=== PATIENT | male | born 1950 | race Caucasian/White ===

== ENCOUNTER 2024-03-09 16:22 | Inpatient (IN) | payer MEDICARE, OTHER, SELFPAY ==
[2024-03-08 17:27] VITALS: BP 141/96
[2024-03-08 17:42] LABS: % Basophils 0.5 % (0-2); % Eosinophils 21.2 % (0-6); % Immature Granulocytes 0.6 % (0-0.5); % Lymphocytes 16.2 % (20.5-51.1); % Monocytes 8.2 % (1.7-9.3); % Neutrophils 53.3 % (42.2-75.2); Absolute Eosinophils 1.7 10^3/uL (0-0.7); Absolute Immature Granulocytes 0.1 10^3/uL (0-0.05); Absolute Lymphocytes 1.3 10^3/uL (1.2-3.4); Absolute Monocytes 0.7 10^3/uL (0.1-0.6); Absolute Neutrophils 4.4 10^3/uL (1.4-6.5); Hematocrit 42.4 % (39.0-52.0); Hemoglobin 14.5 g/dL (13.0-18.0); Mean Corp Hgb Conc. 34.2 g/dL (33.0-37.0); Mean Corpuscular Hgb 33.2 pg (27.0-31.0); Mean Platelet Volume 9.6 fL (7.4-10.4); Nucleated Red Blood Cells % 0 % (-); Platelet Count 313 10^3/uL (130-400); Red Blood Cell Count 4.37 10^6/uL (4.70-6.10); Red Cell Dist. Width 11.9 % (11.5-14.5); White Blood Cell Count 8.2 10^3/uL (4.8-10.8)
[2024-03-08 17:53] LABS: ALT (SGPT) 22 U/L (0-50); AST (SGOT) 22 U/L (17-59); Alkaline Phosphatase 108 U/L (38-126); Blood Urea Nitrogen 21 mg/dl (9-20); Calcium 8.9 mg/dl (8.4-10.2); Carbon Dioxide 30 mmol/L (22-30); Chloride 101 mmol/L (98-107); Glucose 117 mg/dl (70-99); Potassium 4.6 mmol/L (3.5-5.1); Sodium 138 mmol/L (135-145); Total Bilirubin 0.3 mg/dl (0.2-1.3); Total Protein 6.9 g/dl (6.3-8.2); eGFR > 60.00
[2024-03-08 18:05] LABS: Troponin I < 0.012 ng/ml
[2024-03-08 20:54] VITALS: BMI 29.4
[2024-03-08 21:15] VITALS: BP 141/82
[2024-03-08 21:30] VITALS: BP 133/94
--- NOTE | 2024-03-08 21:40 | ED.GENMED ---
History of Present Illness
General
Chief Complaint: Dizziness
Source: patient
Exam Limitations: none
Time Seen by Provider: 03/08/24 18:54
Nursing documentation reviewed up to this point in time: agreed with
History of Present Illness
History of Present Illness:
73-year-old male with no reported chronic medical issues presents to the emergency room for evaluation of diplopia and dizziness. Patient reports symptoms started Saturday while he was working on his computer�he says that he had a few minutes of
diplopia associated with intense dizziness/room spinning. He says that after a few minutes it passed. He says this morning symptoms reoccurred again while he was working on his computer. Again they passed after a few minutes. Tonight while he
was watching television he says he once again had double vision and dizziness and it was more intense and he decided to come to the ER to be evaluated. Currently asymptomatic. He does not have any associated vision loss, speech issues, weakness or
numbness in extremities, headache, palpitations, chest pain or any other symptoms. He has never had the symptoms before; he says he had some transient dizziness from cerumen impaction 5 or 6 years ago but they were dissimilar symptoms without any
diplopia.
Review of Systems
Review of Systems
All Other Systems: ROS reviewed and negative except as documented in HPI and ROS
Constitutional: Denies fever
Respiratory: Denies cough or trouble breathing
Cardiac: Denies chest pain
ABD/GI: Denies abdominal pain, nausea or vomiting
: Denies flank pain
Musculoskeletal: Denies neck pain or back pain
Neurological: Reports dizzy and other (Diplopia); Denies headache, weakness or numbness
Phy Exam
Physical Exam
Physical Exam:
General: Awake, alert, oriented x3; no acute distress
Head: Normocephalic, atraumatic
Eyes: Conjunctiva normal, EOMI, pupils equal round and reactive to light bilaterally
Ears: TMs clear bilaterally�he had some trace cerumen in the right ear that was easily removed
Throat: Airway intact, handling secretions
Neck: Trachea midline, supple without meningismus
Lungs: Clear to auscultation bilaterally, no wheezing, rales, rhonchi
Heart: Regular rate and rhythm, no murmurs, gallops, or rubs
Abd: Soft, non distended, nontender
Neuro: Cranial nerves intact 2 through 12, speech fluid without dysarthria aphasia, no limb ataxia, motor and sensory intact proximally distally in the upper and lower extremities
Skin: no rash
Extremities: No edema in extremities, extremities warm and well-perfused
Scores
NIH Stroke Score
Level of Consciousness: 0 - Alert
LOC Questions: 0-Answers both correctly
LOC Commands: 0-Performs both correctly
Best Horizontal Gaze: 0-Normal
Visual Moser: 0=Normal, no visual loss
Facial Palsy: 0=Normal, symmetrical
Motor - Right Arm: 0=No drift 10 seconds
Motor - Left Arm: 0=No drift 10 seconds
Motor - Right Le-No drift 5 seconds
Motor - Left Le-No drift 5 seconds
Limb Ataxia: 0-Absent
Sensation: 0-Normal
Best Language: 0-No aphasia
Dysarthria: 0-Normal
Extinction and Inattention: 0-No abnormality
Total Score:: 0
Heart Failure Risk
Heart Failure Risk Score: Not Applicable
Heart Score for Chest Pain Patients
STEMI patient?: Not applicable
Withdrawal Assessment of Alcohol
Withdrawal Assessment Completed?: Not applicable
Course
Orders/Labs/Results
Orders:
Orders
03/08/24 17:27
Electrocardiogram (*1) Urgent
Reason for Study: Chest Pain
EKG- Treatment ONCE
03/08/24 17:33
Complete Blood Count/With Diff Urgent
Comprehensive Metabolic Panel Urgent
Troponin I Urgent
03/08/24 18:59
CT Head W/o Iv Contrast Urgent
Comment:
Reason For Exam: dizziness, diplopia
03/08/24 20:46
CT Head & Neck Angio W/wo IV Urgent
Comment:
Reason For Exam: dizziness, diplopia
03/08/24 21:38
Aspirin 325 mg PO NOW STA
03/08/24 21:39
NEUROLOGY CONSULT Urgent
Consulting Provider: Brad Ratliff
Was physician already notified: Yes
03/08/24 22:45
Admit/Transfer Patient As Directed
Co-Sign Provider:
Level of Care: Inpatient admission
Assign to:: Telemetry
Physician / Group: Master Vogt
Diagnosis: CVA/TIA symptoms
Reason for Telemetry: Arrhythmia
Date to Stop Telemetry: 03/11/24
Time to Stop Telemetry: 11:00
Reason for Hospitalization: CVA/TIA symptoms
Expected length of stay greater than two midnights?: Yes
ELOS- Estimated Length of Stay in days: 3
I certify the patient meets the requirements for IP care: Yes
Code Status As Directed
Resuscitation Status: Full Code
PRN Pain Medication Management As Directed
May give lesser potent ordered pain med per pt: Yes
preference::
Protocol:: Medication orders for pain may be administered in a
manner that supports deferring to patient preference
when the pt is:
- Requesting an ordered lesser potent pain medication.
Least to most potent pain medications are defined
as: acetaminophen < NSAID < tramadol < opioids
(morphine, oxycodone, hydromorphone).
- Requesting a lesser dose of the same medication IF
ORDERED.
- Requesting a less intrusive route of administration
if both routes are prescribed by the provider (PO <
IV).
03/11/24 11:00
DC Protocol for Telemetry ONCE
Abnormal Lab Results
03/08/24
17:33
RBC 4.37 L 10^6/uL
(4.70-6.10)
MCV 97.0 H fL
(80.0-94.0)
MCH 33.2 H pg
(27.0-31.0)
Abs Immat Gran (auto) 0.1 H 10^3/uL
(0-0.05)
Absolute Monos (auto) 0.7 H 10^3/uL
(0.1-0.6)
Absolute Eos (auto) 1.7 H 10^3/uL
(0-0.7)
Immature Gran % 0.6 H %
(0-0.5)
Lymphocytes % 16.2 L %
(20.5-51.1)
Eosinophils % 21.2 H %
(0-6)
BUN 21 H mg/dl
(9-20)
Glucose 117 H mg/dl
(70-99)
03/08/24 17:33
03/08/24 17:33
Vital Signs
Initial and Last Documented VS:
Initial Vital Signs
Temp Pulse Resp BP Pulse Ox
36.8 C 106 16 141/96 99
03/08/24 17:27 03/08/24 17:27 03/08/24 17:27 03/08/24 17:27 03/08/24 17:27
Last Documented Vital Signs
Temp Pulse Resp BP Pulse Ox
36.8 C 86 9 112/76 98
03/08/24 17:27 03/08/24 23:30 03/08/24 23:30 03/08/24 23:30 03/08/24 23:30
MDM/Problems Addressed
Differential Diagnosis Includes:
Peripheral vertigo, TIA, eyestrain
MDM/Problems Addressed:
73-year-old male presents to the emergency room for evaluation after multiple episodes of dizziness associated with diplopia. Currently asymptomatic symptoms have resolved. Vitals and exam as above. He had labs sent off including a CBC and a CMP
which were unremarkable. He had an EKG which showed sinus rhythm. CT head negative for any acute pathology. Concern for TIA. Case discussed with neurology. Will dose with an aspirin. They are requesting CTA head and neck. Admit for MR and
monitoring of neurostatus. Case discussed with hospitalist for admission.
*Radiology
Radiology exam reviewed: radiology read reviewed
*Pulse Oximetry
Patient hypoxic: no
*EKG
Interpreted by ED Provider?: Yes
Heart Rate: 99
Rate: normal
Rhythm: sinus
Tunas: left axis deviation
Interval: normal interval
QRS Pattern: left vent hypertrophy
Ischemia: no ischemia
*Critical Care Note
Total Time (30-74mins, 75-104mins- exclusive of procedures): Not Applicable
Data Reviewed
Source: patient
Patient Management
Discussion with other providers: Hospitalist (Discussed with hospitalist) and Senior Counsel [employer] (Discussed with neurologist)
Escalation/DeEscalation of care consider admission/obs:
Admission indicated
ED Attending Note
-
Portions of this chart may have been created with voice recognition software.� Occasional wrong word or��sound alike� substitutions may have occurred due to the inherent limitations of voice recognition software.
Discharge Plan
Departure
Patient Disposition: Admit
Date of Disposition: 03/08/24
Time of Disposition: 21:39
Admit to doctor: Sin
Presentation/result/management discussed w/ accepting MD/DO: Hospitalist
Discharge Problem:
TIA (transient ischemic attack)
Interventions
Interventions:
*Risk Screen - Suicide Last Done: 03/08/24 17:27
*General Assessment Last Done: 03/08/24 19:10
*Neglect/Abuse Screening Last Done: 03/08/24 17:27
*ED COVID-19 Vaccine History Last Done: 03/08/24 19:10
ED- Neurological Assessment Last Done: 03/08/24 19:10
ED Swallowing Screen Last Done: 03/08/24 20:54
--- NOTE | 2024-03-08 21:50 | HPS.HSE ---
Addendum entered and electronically signed by Master Vogt DO 03/08/24 23:57:
Patient seen and examined independently. Agree with findings and plan as set forth by AVELINA Rodgers.
Patient is a 73y M with no significant PMH who presents to ED complaining of dizziness and double vision. Patient describes episodes of double-vision on and again this evening. Both occurred while sitting at his computer for long
hours. Patient states that he also had dizziness / room spinning and nausea. He has had similar vertigo symptoms in the past associated with cerumen impaction - but not with double-vision. He denies any headache, chest pain, dyspnea, etc.
Ass:
Diplopia
Dizziness / Vertigo
Plan:
Observe overnight for further evaluation and treatment.
DAPT for now.
Check MRI in AM.
Neurology eval for further recommendations.
PT / OT evaluations.
Original Note:
Family Physician
-
Family Physician: NOT KNOW UNKNOWN - PT DOES
Chief Complaint
-
dizziness, double vision
History of Present Illness
Patient is a 73-year-old male with no significant past medical history who presented to [facility] ED for evaluation of dizziness and double vision. Patient reports starting last he had a single episodes of double vision that resolved
within a minute. Since then he has had a few episodes of dizziness and stated they came out of no where. Tokays episode of dizziness followed an episode of double vision and came on when he stood up from couch. He stated he grabbed on to wall,
denies falling and states it resolved within a minute or so, but felt since he has had multiple he should come for evaluation. He does report double vision has only happened 2 times, today being the second. The dizzy spells are described as
lightheadedness and some episodes associated with nausea. He reports having dizzy spells a few years ago that steamed from ear wax build up and resolved when ears where cleaned. He did mention that right year had some wax today and cleaned out by
ED. Patient denies any fever, chills, chest pain, cough, shortness of breath, vomiting, constipation, diarrhea or urinary symptoms.
Medical History
Past Medical History
Past Medical History: Reports None
Past Surgical History: Reports Other
Additional Past Surgical History:
left wrist fx repair
lasix
Social History
Tobacco: Former Smoker (quit 15 years ago, 25 pack year history)
Alcohol: Occasional (1-2 drinks per week)
Drug: None
Personal:
Living: With Family
Employment: Retired
Family History
Family History: Not pertinent
Allergies / Home Medications
Allergies reflects when Allergies were last updated in [employer].
Home Medications with original date entered in [employer]
Allergy/Medication List:
Allergies
Allergy/AdvReac Type Severity Reaction Status Date / Time
No Known Allergies Allergy Unverified 03/08/24 17:27
Review of Systems
-
History Source: Patient
Constitutional: Reports No Symptoms
EENT: Reports No Symptoms
Respiratory: Reports No Symptoms
Cardiac: Reports No Symptoms
Abdomen/GI: Reports No Symptoms
: Reports No Symptoms
Musculoskeletal: Reports No Symptoms
Skin: Reports No Symptoms
Neurological: Reports Dizzy and Other (double vision)
Endocrine: Reports No Symptoms
Hematologic/Lymphatic: Reports No Symptoms
Psych: Reports No Symptoms
Physical Exam
Vital Signs
Vital Signs
Temp Pulse Resp BP Pulse Ox
98.2 F 106 16 133/94 98
03/08/24 17:27 03/08/24 17:27 03/08/24 17:27 03/08/24 21:30 03/08/24 21:30
Physical Exam
General: Well Developed, Well Nourished, No Apparent Distress and Comfortable
HEENT: NormoCephalic, Moist mucous membranes, Atraumatic, PERRLA, Delevan Conjunctivae, Nose Appears Normal and Ears Appear Normal
Respiratory: Clear and Non Labored Respirations
Cardiac: S1/S2 and Regular Rhythm; No Murmur, Rub or Gallop
Breast: Deferred by me
GI: Soft, Non Tender, Non Distended and Normal Bowel Sounds; No Organomegaly
Rectal: Deferred by Provider
Genito-urinary: Deferred by me
Musculoskeletal: No Clubbing, No Cyanosis and No Edema
Skin: Warm and IV/Catheter Site; No Rash
Neuro: Awake, Alert, AO x 3 and Nonfocal/grossly intact
Hematologic/Lymphatic: No Lymphadenopathy
Psych: Calm and Intact Judgment/Insight
Laboratory Results
-
03/08/24 17:33
03/08/24 17:33
Laboratory Results
Total Bilirubin 0.3 mg/dl (0.2-1.3) 03/08/24 17:33
AST 22 U/L (17-59) 03/08/24 17:33
ALT 22 U/L (0-50) 03/08/24 17:33
Alkaline Phosphatase 108 U/L (38-126) 03/08/24 17:33
Troponin I < 0.012 ng/ml 03/08/24 17:33
Data Reviewed
-
CT Scan: Report Reviewed by me (Head CT: No acute intracranial abnormality noted.)
Medical Tests (Nuc Med, Echo, EKG etc): Report Reviewed by me (EKG: NORMAL SINUS RHYTHM MINIMAL VOLTAGE CRITERIA FOR LVH, MAY BE NORMAL VARIANT ( R in aVL ))
Lab Data: Labs Reviewed by me
Impression/Plan
-
IMPRESSION/PLAN:
#TIA/CVA symptoms
Head CT: No acute intracranial abnormality noted
EKG: NORMAL SINUS RHYTHM
- Admit to telemetry
- consult neurology
- Head/neck CTA pending
- MRI
- Neurochecks
- [facility]
- Start aspirin and Plavix
Code Status: Full Code
DVT Prophylaxis: SCDs
[2024-03-08 22:00] VITALS: BP 109/71
[2024-03-08 22:30] VITALS: BP 113/69
[2024-03-08] MEDS: ASPIRIN 325 MG PO (23:25)
[2024-03-08 23:30] VITALS: BP 112/76
[2024-03-09] VITALS (9 sets, daily range): BP systolic 109–149; BP diastolic 61–85; PULSE 81–98; BMI 29.1
--- NOTE | 2024-03-09 02:17 | PTCARENOTE ---
Receive pt from ER. Pt alert oriental X3, calm, in no distress. Pt assist X1 to his bed, steady gait. Pt oriented to the room, call cardenas within reach. Pt denies double vision, dizziness, or any other complaint. VSS (T=98.8, HR=87, RR=18, UT=162/71,
SpO2=98% on RA). NIH=0. Pt passed the swallowing test. Pt on NSR on telemonitor. Will continue to monitor the pt.
[2024-03-09] MEDS: PLAVIX 75 MG PO (08:26)
[2024-03-09] MEDS: LOW STRENGTH ASPIRIN 81 MG PO (08:26)
[2024-03-09] MEDS: FLUSH (NSS) 1 FLUSH IV (08:30)
--- NOTE | 2024-03-09 09:33 | W.PN.HOSP.TC ---
Today's Communication/Plan
-
Discharge today
Assessment / Plan
Assessment / Plan
Physical Exam
General: Not in acute distress
HEENT: Normocephalic
Respiratory: Clear to Auscultation Bilaterally
Cardiac: S1/S2 and Regular Rhythm
GI: Soft, Non Tender, Non Distended and Normal Bowel Sounds
Musculoskeletal: No Cyanosis and No Edema
Skin: Warm. Dry.
Neuro: Awake, Alert, AO x 3 and Nonfocal/grossly intact
Psych: Calm and Intact Judgment/Insight
Assessment/Plan
73 y/o male with no significant past medical history who presented complaining of dizziness and double vision. Patient described episodes of double-vision on and again on Saturday evening. Both occurred while sitting at his computer for
long hours. Patient stated that he also had dizziness / room spinning and nausea. He has had similar vertigo symptoms in the past associated with cerumen impaction - but not with double-vision. He denied any headache, chest pain, dyspnea, etc.
#TIA/CVA symptoms
#Acute infarcts in the bilateral MILK DRIVER territory, occipital, centrum semiovale
#Diplopia, Dizziness, Vertigo
Head CT: No acute intracranial abnormality noted
EKG: NORMAL SINUS RHYTHM
- consult neurology
- Head/neck CTA unremarkable: mild calcified plaque, no hemodynamically significant stenosis
- MRI Brain
- Neurochecks
- [facility]
- Continue Aspirin 81 mg daily
- Continue Plavix 75 mg x 21 days
- Lipid panel noted. Start Lipitor 40 mg daily.
- Outpatient cardiology eval for zio patch
Code Status: Full Code
DVT Prophylaxis: SCDs
More than 30 minutes spent in discharge including
Final examination of the patient
Summarizing hospital stay
Instructions for continuing care to all relevant caregivers
Preparation of discharge records, prescriptions, and referral forms
Total time spent (in minutes): 39
Anticipated Discharge: Today
Subjective/Interval History
-
Date of Service: March 09, 2024
Patient was seen and examined. He reported that his initial neurological symptoms have resolved, and he wants to go home today.
Objective Data
-
Labs:
Laboratory Results
03/09/24
06:00
WBC Pending
Hgb Pending
Hct Pending
Plt Count Pending
PT Pending
INR Pending
APTT Pending
Sodium Pending
Potassium Pending
Chloride Pending
Carbon Dioxide Pending
BUN Pending
Creatinine Pending
Glucose Pending
Calcium Pending
Total Bilirubin Pending
AST Pending
ALT Pending
Alkaline Phosphatase Pending
Vital Signs:
Vital Signs
Temp Pulse Resp BP Pulse Ox
98.1 F 81 20 120/74 96
03/09/24 07:45 03/09/24 07:45 03/09/24 07:45 03/09/24 07:45 03/09/24 07:45
I&O
03/08/24 03/09/24 03/10/24
06:59 06:59 06:59
Intake Total 480 / 480
Balance 480 / 480
[2024-03-09 10:52] LABS: Urine Albumin Negative (Neg - Trace); Urine Bilirubin Negative (Negative); Urine Character Clear (Clear); Urine Color Yellow; Urine Glucose Negative (Negative); Urine Ketone Negative (Negative); Urine Leukocyte Negative (Negative); Urine Nitrite Negative (Negative); Urine Occult Blood Negative (Negative); Urine Urobilinogen Negative (Neg - 1+)
[2024-03-09 11:08] LABS: Hematocrit 40.8 % (39.0-52.0); Hemoglobin 13.8 g/dL (13.0-18.0); Mean Corp Hgb Conc. 33.8 g/dL (33.0-37.0); Mean Corpuscular Hgb 32.8 pg (27.0-31.0); Mean Corpuscular Volume 96.9 fL (80.0-94.0); Mean Platelet Volume 9.5 fL (7.4-10.4); Platelet Count 286 10^3/uL (130-400); Red Blood Cell Count 4.21 10^6/uL (4.70-6.10)
[2024-03-09 11:23] LABS: Erythrocyte Sed Rate 38 mm/hour (0-20)
[2024-03-09 11:25] LABS: INR 1.09; PT 14.6 Sec (11.4-14.6)
[2024-03-09 11:27] LABS: APTT 38.9 Sec (23.4-35.0)
--- NOTE | 2024-03-09 11:54 | PTOTSP ---
Patient mobilizing at functional baseline and does not demonstrate need for further skilled therapy at this time and will be discharge.
If needs change, please re-consult.
[2024-03-09 12:07] LABS: ALT (SGPT) 20 U/L (0-50); AST (SGOT) 20 U/L (17-59); Albumin 3.6 g/dl (3.5-5.0); Alkaline Phosphatase 96 U/L (38-126); Blood Urea Nitrogen 17 mg/dl (9-20); Calcium 8.8 mg/dl (8.4-10.2); Carbon Dioxide 29 mmol/L (22-30); Chloride 103 mmol/L (98-107); Estimated Creatinine Clearance 63 ml/min; Glucose 90 mg/dl (70-99); Potassium 4.5 mmol/L (3.5-5.1); Sodium 137 mmol/L (135-145); Total Bilirubin 0.5 mg/dl (0.2-1.3); Total Cholesterol 174 mg/dl (50-199); Total Protein 6.3 g/dl (6.3-8.2); Triglyceride 73 mg/dl (10-149); Very Low Density Lipoprotein 14 mg/dl (0-30); eGFR > 60.00
[2024-03-09 12:29] LABS: Glycohemoglobin (HgbA1c) 5.4 % (4.0-5.6)
[2024-03-09 13:05] LABS: HDL Cholesterol 52 mg/dl; LDL Cholesterol, Calculated 108 mg/dl
--- NOTE | 2024-03-09 13:59 | CON.NEURO ---
Neuro Assessment/Plan
Assessment
symptoms due to stroke, likely emboli from local vessel (vertebrobasilar)
brain MRI imgs rev'd, discussed with radiologist, 3 punctate acute infarcts in the b/l ROUGH RICE TENDER territory, occipital, centrum semiovale
CTA showing b/l carotids mild calcified plaque, no hemodynamically significant stenosis
HDL 52, LDL 108, HA1c 5.4
Plan
continue ASA 81
continue plavix 75 x21 days
Add Lipitor 40
ok to d/c home, coming up on 24 hrs of heart monitoring
patient with relatively few risk factors, discussed with him at our option, outpatient cardiology eval for zio patch, if afib were found he could be treated with anticoagulants
Consultation
Order
Date of Consultation: 03/09/24
Requesting Provider:
Reason for Consult:
Subjective/Objective
Subjective Data
Date of Service: March 09, 2024
patient presents yesterday with ~2 hours of transient dizziness, binocular double vision while using a computer. symptoms now resolved
denies vision loss, facial droop, focal weakness, numbness, speech changes
Objective Data
Vital Signs
Temp Pulse Resp BP Pulse Ox
36.3 C 89 20 132/80 97
03/09/24 11:43 03/09/24 11:43 03/09/24 11:43 03/09/24 11:43 03/09/24 11:43
Lab Results
03/09/24 10:59
03/09/24 10:59
PT 14.6 Sec (11.4-14.6) 03/09/24 10:59
INR 1.09 03/09/24 10:59
APTT 38.9 Sec (23.4-35.0) H 03/09/24 10:59
Sodium 137 mmol/L (135-145) 03/09/24 10:59
Potassium 4.5 mmol/L (3.5-5.1) 03/09/24 10:59
BUN 17 mg/dl (9-20) 03/09/24 10:59
Glucose 90 mg/dl (70-99) 03/09/24 10:59
Calcium 8.8 mg/dl (8.4-10.2) 03/09/24 10:59
LDL Cholesterol, Calc 108 mg/dl 03/09/24 10:59
Patient Allergies
No Known Allergies Allergy (Unverified 03/08/24 17:27)
Physical Exam
-
AAO x3, speech clear, language intact
VFF, EOMI, face symmetric
full strength b/l UE/LE, no pronator drift
sensation intact touch/pin
Medications
-
Active Medications
Generic Name Dose Route Start Last Admin
Trade Name Freq PRN Reason Stop Dose Admin
Aspirin 81 mg 03/09/24 08:00 03/09/24 08:26
Aspirin 81 Mg Chewable Tablet PO 04/06/24 07:59 81 mg
DAILY LIDIA Administration
Atorvastatin Calcium 40 mg 03/09/24 18:00
Atorvastatin (Lipitor) 40 Mg Tablet PO 04/06/24 17:59
QPM LIDIA
Clopidogrel Bisulfate 75 mg 03/09/24 08:00 03/09/24 08:26
Clopidogrel 75 Mg Tablet PO 04/06/24 07:59 75 mg
DAILY LIDIA Administration
Sodium Chloride 0 flush 03/09/24 09:00 03/09/24 08:30
Sodium Chloride 0.9% (Flush) Syringe IV 04/06/24 08:59 1 flush
PER PROTOCOL LIDIA Administration
Home Medications
�Medication �Instructions �Recorded
No Meds [No Current Medications] 03/09/24
--- NOTE | 2024-03-09 15:41 | CM ---
Patient seen bedside.
IA completed.
Patient lives with spouse and 3 sons in a 2 story home with 1 step to enter.
patient drives and works from home.
Patient independent prior to admission.
patient does ot use assistive devices.
Patient denies home care needs at this time.
PCP: none, resources provided, however he will probably go to his spouses PCP.
Pharmacy: [facility]
Plan Home no needs.
--- NOTE | 2024-03-09 16:50 | W.DCSUMMARY ---
Discharge Summary
Discharge Data
Date of Admission: 03/08/24
Date of Discharge: 03/09/24
Total time spent discharging patient (in min): 39
-
Pending Results: No
Hospital Course
73 y/o male who presented reporting dizziness and double vision. Patient was started on dual antiplatelet therapy, CT Head showed no acute changes, CTA Head and Neck showed as per radiologist, 'No evidence for hemodynamically significant stenosis of
the carotid bulbs or internal carotid arteries bilaterally......Dominant right vertebral artery with smaller caliber left vertebral artery. The left vertebral artery terminates as the posterior inferior cerebellar artery, which is considered normal
variation.' MRI Brain was done, and it showed, 'Three small nonhemorrhagic acute/subacute infarcts within the bilateral parieto-occipital/posterior centrum semiovale regions.' Patient's symptoms resolved, it was was explained that he should consider
getting a Zio Patch outpatient through a scientific informatics analyst.
Discharge Plan
-
Patient Disposition: Home (Routine Discharge)
Discharge Diagnosis/Procedures: #Acute infarcts/strokes in the bilateral ASSISTANT CONTROLLER territory, occipital, centrum semiovale
#Diplopia, Dizziness, Vertigo - ALL RESOLVED
#Mild calcified plaque in carotid artery
MRI BRAIN ( PER RADIOLOGIST'S REPORT)
'IMPRESSION:
Three small nonhemorrhagic acute/subacute infarcts within the bilateral parieto-occipital/posterior centrum semiovale regions.'
Condition: Good
Diet: Low Fat, Low Cholesterol, Low Sodium and 2 Gram Sodium
Activity: As tolerated
Referrals:
Bhavana Armas CRNP [Specified Professional Personl] - in two to four weeks (Hospital follow-up; during hospitalization, found to have strokes)
Nimesh Aleman MD [Active] - in two to three weeks (Outpatient cardiology evaluation for zio patch given strokes)
UNKNOWN - PT DOES,NOT KNOW [Family Provider] -
Additional Discharge Medication Instructions: Aspirin, Clopidogrel and Atorvastatin are new medications.
Prescriptions:
New
atorvastatin 40 mg Tablet
40 mg PO QPM Qty: 30 2RF
aspirin 81 mg Tablet,Chewable
81 mg PO DAILY Qty: 30 3RF
clopidogrel 75 mg Tablet
75 mg PO DAILY 20 Days Qty: 20 0RF
Rx Instructions:
First dose on 03/10/24
Discharge Orders:
Discharge Patient (As Directed); Ordered 03/09/24
Ordered By: Andrés Rodriguez
Discharge Date and Time
Discharge Date/Time: 03/09/24 18:09
Print Language: PARAGUAYAN
[2024-03-09] MEDS: LIPITOR 40 MG PO (17:44)
== END 2024-03-09 18:09 | disposition home or self-care (01) | DRG 66 ==
LOC: 4 EAST ACU 16:22
PROVIDERS: Emergency Medicine; Nurse Practitioner Family; ADMITTING PHYSICIAN Hospitalist; ATTENDING PHYSICIAN Hospitalist; EMERGENCY PHYSICIAN Emergency Medicine; OTHER PHYSICIAN Psychiatry & Neurology Clinical Neurophysiology
DX: I63.533 Cerebral infarction due to unspecified occlusion or stenosis of bilateral posterior cerebral arteries (principal); Z87.891 Personal history of nicotine dependence; Z79.02 Long term (current) use of antithrombotics/antiplatelets; Z79.82 Long term (current) use of aspirin; I65.29 Occlusion and stenosis of unspecified carotid artery
CPT/HCPCS: 70450; 70496; 70498; 70551; 80053; 80061; 81003; 83036; 84484; 85025; 85027; 85610; 85652; 85730; 86850; 86900; 86901; 93005; 97116; 97162; 97165; 99285; Q9967

== ENCOUNTER → 2024-04-10 10:14 | Outpatient (REF) | payer MEDICARE, OTHER, SELFPAY ==
[2024-04-10 11:39] LABS: ALT (SGPT) 22 U/L (0-50); AST (SGOT) 21 U/L (17-59); Albumin 3.5 g/dl (3.5-5.0); Alkaline Phosphatase 97 U/L (38-126); Direct Bilirubin 0.3 mg/dl (0.0-0.4); HDL Cholesterol 31 mg/dl; LDL Cholesterol, Calculated 48 mg/dl; Total Bilirubin 0.8 mg/dl (0.2-1.3); Total Cholesterol 91 mg/dl (50-199); Total Protein 6.5 g/dl (6.3-8.2); Triglyceride 61 mg/dl (10-149); Very Low Density Lipoprotein 12 mg/dl (0-30)
[2024-04-10 13:26] LABS: TSH 2.25 uIU/ml (0.47-4.68)
== END ==
LOC: REG 10:14
PROVIDERS: ATTENDING PHYSICIAN Internal Medicine Cardiovascular Disease
DX: E78.5 Hyperlipidemia, unspecified (principal)
CPT/HCPCS: 36415; 80061; 80076; 84443

== ENCOUNTER → 2024-04-22 15:28 | Outpatient (REF) | payer MEDICARE, OTHER, SELFPAY | LOC: RAD 15:28 | PROVIDERS: ATTENDING PHYSICIAN Internal Medicine Cardiovascular Disease; FAMILY PHYSICIAN Family Medicine | DX: R60.0 Localized edema (principal) | CPT/HCPCS: 93971 ==

== ENCOUNTER → 2024-05-25 11:15 | Outpatient (REF) | payer MEDICARE, OTHER, SELFPAY | LOC: HWRAD 11:15 | PROVIDERS: ATTENDING PHYSICIAN Student in an Organized Health Care Education/Training Program | DX: Z86.73 Personal history of transient ischemic attack (TIA), and cerebral infarction without residual deficits (principal); R07.89 Other chest pain; Z87.891 Personal history of nicotine dependence | CPT/HCPCS: 71046 ==

== ENCOUNTER → 2024-05-26 10:56 | Outpatient (REF) | payer MEDICARE, OTHER, SELFPAY ==
[2024-05-26 12:42] LABS: % Basophils 0.4 % (0-2); % Eosinophils 14.8 % (0-6); % Lymphocytes 11.9 % (20.5-51.1); % Monocytes 9.9 % (1.7-9.3); Absolute Immature Granulocytes 0.1 10^3/uL (0-0.05); Absolute Lymphocytes 0.8 10^3/uL (1.2-3.4); Absolute Monocytes 0.7 10^3/uL (0.1-0.6); Absolute Neutrophils 4.4 10^3/uL (1.4-6.5); Hematocrit 31.9 % (39.0-52.0); Hemoglobin 10.3 g/dL (13.0-18.0); Mean Corp Hgb Conc. 32.3 g/dL (33.0-37.0); Mean Corpuscular Hgb 31.4 pg (27.0-31.0); Mean Corpuscular Volume 97.3 fL (80.0-94.0); Mean Platelet Volume 10.7 fL (7.4-10.4); Nucleated Red Blood Cells % 0 % (-); Platelet Count 403 10^3/uL (130-400); Red Blood Cell Count 3.28 10^6/uL (4.70-6.10)
[2024-05-26 13:26] LABS: ALT (SGPT) 13 U/L (0-50); AST (SGOT) 15 U/L (17-59); Albumin 3.5 g/dl (3.5-5.0); Alkaline Phosphatase 108 U/L (38-126); Blood Urea Nitrogen 21 mg/dl (9-20); Calcium 8.8 mg/dl (8.4-10.2); Carbon Dioxide 27 mmol/L (22-30); Chloride 103 mmol/L (98-107); Glucose 95 mg/dl (70-99); Potassium 5.1 mmol/L (3.5-5.1); Sodium 139 mmol/L (135-145); Total Bilirubin 0.8 mg/dl (0.2-1.3); Total Protein 7.1 g/dl (6.3-8.2); eGFR > 60.00
== END ==
LOC: HWLAB 10:56
PROVIDERS: ATTENDING PHYSICIAN Student in an Organized Health Care Education/Training Program
DX: Z86.73 Personal history of transient ischemic attack (TIA), and cerebral infarction without residual deficits (principal); E78.5 Hyperlipidemia, unspecified; Z87.891 Personal history of nicotine dependence
CPT/HCPCS: 36415; 80053; 85025

== ENCOUNTER → 2024-06-04 07:25 | Outpatient (REF) | payer MEDICARE, OTHER, SELFPAY | LOC: RAD 07:25 | PROVIDERS: ATTENDING PHYSICIAN Student in an Organized Health Care Education/Training Program | DX: Z86.73 Personal history of transient ischemic attack (TIA), and cerebral infarction without residual deficits (principal) | CPT/HCPCS: 71260; Q9967 ==

== ENCOUNTER 2024-06-12 17:25 | Emergency (ER) | payer MEDICARE, OTHER, SELFPAY ==
[2024-06-12 17:32] VITALS: BP 124/88
[2024-06-12 18:00] LABS: % Basophils 0.2 % (0-2); % Eosinophils 10.4 % (0-6); % Immature Granulocytes 2.3 % (0-0.5); % Lymphocytes 12.3 % (20.5-51.1); % Monocytes 6.7 % (1.7-9.3); % Neutrophils 68.1 % (42.2-75.2); Absolute Eosinophils 1.4 10^3/uL (0-0.7); Absolute Immature Granulocytes 0.3 10^3/uL (0-0.05); Absolute Lymphocytes 1.7 10^3/uL (1.2-3.4); Absolute Monocytes 0.9 10^3/uL (0.1-0.6); Absolute Neutrophils 9.2 10^3/uL (1.4-6.5); Hematocrit 37.6 % (39.0-52.0); Hemoglobin 12.3 g/dL (13.0-18.0); Mean Corp Hgb Conc. 32.7 g/dL (33.0-37.0); Mean Corpuscular Hgb 31.5 pg (27.0-31.0); Mean Corpuscular Volume 96.2 fL (80.0-94.0); Mean Platelet Volume 9.6 fL (7.4-10.4); Nucleated Red Blood Cells % 0 % (-); Platelet Count 503 10^3/uL (130-400); Red Blood Cell Count 3.91 10^6/uL (4.70-6.10); Red Cell Dist. Width 13.3 % (11.5-14.5); White Blood Cell Count 13.5 10^3/uL (4.8-10.8)
[2024-06-12 18:08] LABS: INR 1.45; PT 17.9 Sec (11.4-14.6)
[2024-06-12 18:09] LABS: APTT 39.4 Sec (23.4-35.0)
[2024-06-12 18:19] LABS: ALT (SGPT) 18 U/L (0-50); AST (SGOT) 15 U/L (17-59); Albumin 3.3 g/dl (3.5-5.0); Alkaline Phosphatase 96 U/L (38-126); Blood Urea Nitrogen 26 mg/dl (9-20); Calcium 9.4 mg/dl (8.4-10.2); Carbon Dioxide 25 mmol/L (22-30); Chloride 105 mmol/L (98-107); Glucose 100 mg/dl (70-99); Potassium 5.5 mmol/L (3.5-5.1); Sodium 140 mmol/L (135-145); Total Bilirubin 0.8 mg/dl (0.2-1.3); Total Protein 6.5 g/dl (6.3-8.2); eGFR 57.29
[2024-06-12 18:35] LABS: NT-proBNP 879 pg/ml
[2024-06-12 21:21] VITALS: BMI 27.2
[2024-06-12 21:22] VITALS: BP 116/70
--- NOTE | 2024-06-12 21:35 | ED.GENMED ---
History of Present Illness
General
Chief Complaint: Abnormal Lab Value
Source: patient and records
Exam Limitations: none
Time Seen by Provider: 06/12/24 21:07
History of Present Illness
History of Present Illness:
74yoM with a history of prior CVA on dual antiplatelet therapy presenting for evaluation of shortness of breath. Patient has been having some exertional dyspnea over the past month or so. He has been following with his PCP for his symptoms. He
had lab work on 05/26/2024 and hemoglobin was 10.3 at that time. He initially had a chest x-ray on 05/25/2024 which showed a nonspecific left pleural effusion. A follow-up CT chest was ordered which he completed [address] revealed 'Mild
elevation of the left hemidiaphragm with a trace left pleural effusion and left basilar atelectasis. Small pericardial effusion. There is questionable mild pericardial enhancement and may represent an element of pericarditis.' He does report some
lower extremity swelling but admits he has not been wearing his compression stockings for several days. He has also been having an hacking cough for the past 3 days which feels better today. He was seen [facility]
earlier today. He was initially seen by the resident and was told he would be started on an oral diuretic. The attending subsequently came in and told him to go to the ED instead. He denies any shortness of breath at this time. Patient states he
is asymptomatic and 'feels as good as I can.' He denies any chest pain, dizziness, syncope, fevers, chills.
Phy Exam
General Physical Exam
General Presentation: well appearing and no apparent distress
General age: appears stated age
General Skin: warm and dry
General Habitus: normal
General Mental: alert
ENT Exam
ENT Exam: normocephalic
Cardiovascular Exam
Cardiovascular Exam: regular rate/rhythm, no murmur and other (2+ pitting edema in bilateral lower extremities)
Pulmonary Exam
Pulmonary Exam: lungs clear, no respiratory distress, no rales, no crackles, no rhonchi and no wheezing
Neurological Exam
Neurological Exam: alert
[place] Coma Scale
Eye Opening: Spontaneous
Verbal Response: Oriented
Motor Response: Obeys Commands
GCS Total Score: 15
Skin Exam
Skin Exam: normal color and warm/dry
Psychiatric Exam
Psychiatric Exam: normal mood/affect
Course
Orders/Labs/Results
Orders:
Orders
06/12/24 17:52
Type And Crossmatch [Type+Screen] Urgent
Complete Blood Count/With Diff Urgent
Comprehensive Metabolic Panel Urgent
NT-proBNP Urgent
PTT Urgent
Prothrombin Time Urgent
Troponin I Urgent
Comment: ADD ON
06/12/24 21:10
Electrocardiogram (*1) Urgent
Reason for Study: Shortness of Breath
EKG- Treatment ONCE
06/12/24 21:19
CR Chest - 2 Views Urgent
Comment:
Reason For Exam: cough
06/12/24 21:20
Electrocardiogram (*1) Urgent
Reason for Study: Shortness of Breath
06/12/24 21:23
Add On- LAB Urgent
Comments:: TROPONIN
Tests Added?: TROPONIN
06/12/24 22:34
Furosemide [Lasix] 20 mg PO NOW STA
Abnormal Lab Results
06/12/24
17:52
WBC 13.5 H 10^3/uL
(4.8-10.8)
RBC 3.91 L 10^6/uL
(4.70-6.10)
Hgb 12.3 L g/dL
(13.0-18.0)
Hct 37.6 L %
(39.0-52.0)
MCV 96.2 H fL
(80.0-94.0)
MCH 31.5 H pg
(27.0-31.0)
MCHC 32.7 L g/dL
(33.0-37.0)
Plt Count 503 H 10^3/uL
(130-400)
Abs Immat Gran (auto) 0.3 H 10^3/uL
(0-0.05)
Absolute Neuts (auto) 9.2 H 10^3/uL
(1.4-6.5)
Absolute Monos (auto) 0.9 H 10^3/uL
(0.1-0.6)
Absolute Eos (auto) 1.4 H 10^3/uL
(0-0.7)
Immature Gran % 2.3 H %
(0-0.5)
Lymphocytes % 12.3 L %
(20.5-51.1)
Eosinophils % 10.4 H %
(0-6)
PT 17.9 H Sec
(11.4-14.6)
APTT 39.4 H Sec
(23.4-35.0)
Potassium 5.5 H mmol/L
(3.5-5.1)
BUN 26 H mg/dl
(9-20)
Glucose 100 H mg/dl
(70-99)
AST 15 L U/L
(17-59)
Albumin 3.3 L g/dl
(3.5-5.0)
06/12/24 17:52
06/12/24 17:52
Vital Signs
Initial and Last Documented VS:
Initial Vital Signs
Temp Pulse Resp BP Pulse Ox
97.9 F 109 18 124/88 98
06/12/24 17:32 06/12/24 17:32 06/12/24 17:32 06/12/24 17:32 06/12/24 17:32
Last Documented Vital Signs
Temp Pulse Resp BP Pulse Ox
98.3 F 102 20 116/70 99
06/12/24 21:22 06/12/24 21:22 06/12/24 21:22 06/12/24 21:22 06/12/24 21:22
MDM/Problems Addressed
Differential Diagnosis Includes:
74yoM here for abnormal outpatient testing. CT chest performed 1 week ago showed a trace pleural effusion and small pericardial effusion. He is completely asymptomatic currently other than some leg swelling. Denies SOB, PND, orthopnea, CP. Had a
cough for the past few days but denies a cough today. HR 109 in triage. Remainder of vitals are normal. Oxygen saturation 98% on room air. He is well-appearing in no acute distress. He is speaking in full sentences without difficulty. Lungs clear
to auscultation and respirations unlabored. There is 2+ pitting edema in the lower extremities. Differential diagnosis includes but is not limited to: CHF, pleural effusion, pericardial effusion, no clinical evidence of cardiac tamponade
Initial ED plan: Labs obtained in triage. Hemoglobin improved to 12.3. Leukocytosis noted with a WBC of 13.5 which is nonspecific. Creatinine at baseline. BNP 879. Will check troponin/EKG and CXR.
*EKG
Interpreted by ED Provider?: Yes
EKG Intrepretation Date: 06/12/24
Heart Rate: 102
Rate: tachycardiac
Rhythm: sinus
[place]: left axis deviation
Interval: normal interval
QRS Pattern: normal QRS
Ischemia: non-specific ST changes
*Critical Care Note
Total Time (30-74mins, 75-104mins- exclusive of procedures): Not Applicable
Update Note
Update Note:
EKG shows NSR without ischemic changes and troponin WNL. CXR shows a stable small L pleural effusion with associated atelectasis and/or pneumonia. Patient denies any cough today and is afebrile. Discussed results with patient and he does not feel he
has pneumonia. Patient is adamant that he does not want to be hospitalized. D/w Dr. Robert. Will discharge with 5 day course of Lasix 20mg daily. He was advised to f/u closely with his PCP and iron miner for outpatient echocardiogram. Strict ED
return precautions discussed. Patient discharged in stable condition.
ED Attending Note
-
Portions of this chart may have been created with voice recognition software.� Occasional wrong word or��sound alike� substitutions may have occurred due to the inherent limitations of voice recognition software.
Discharge Plan
Departure
Patient Disposition: Home (Routine Discharge)
Date of Disposition: 06/12/24
Time of Disposition: 22:34
Patient with high blood pressure during this ER visit?: No
Discharge Problem:
Bilateral edema of lower extremity
Instructions: Swelling
Prescriptions:
New
furosemide [Lasix] 20 mg tablet
20 mg PO DAILY Qty: 4 0RF
No Action
atorvastatin 40 mg Tablet
40 mg PO QPM Qty: 30 2RF
aspirin 81 mg Tablet,Chewable
81 mg PO DAILY Qty: 30 3RF
clopidogrel 75 mg Tablet
75 mg PO DAILY 20 Days Qty: 20 0RF
Rx Instructions:
First dose on 03/10/24
Referrals:
Yonathan Blackmon MD, Resident [Family Provider] -
Nimesh Aleman MD [Active] -
Activity Restrictions/Additional Instructions:
Take Lasix as prescribed.
Please call your family doctor and iron miner on Saturday. You should have an echocardiogram (ultrasound of your heart) for further evaluation.
Return to the ER with any new or worsening symptoms.
Interventions
Interventions:
*Risk Screen - Suicide Last Done: 06/12/24 17:32
*General Assessment Last Done: 06/12/24 17:32
*Neglect/Abuse Screening Last Done: 06/12/24 17:32
*ED COVID-19 Vaccine History Last Done: 06/12/24 17:32
*Nursing Disposition Last Done: 06/12/24 22:43
Discharge Date and Time
Discharge Date/Time: 06/12/24 22:43
Print Language: BULGARIAN
[2024-06-12 22:06] LABS: Troponin I < 0.012 ng/ml
[2024-06-12] MEDS: LASIX 20 MG PO (22:41)
== END 2024-06-12 22:43 | disposition home or self-care (01) ==
LOC: EMR 17:25
PROVIDERS: Emergency Medicine; EMERGENCY PHYSICIAN Emergency Medicine; FAMILY PHYSICIAN Student in an Organized Health Care Education/Training Program
DX: R60.0 Localized edema (principal); Z79.02 Long term (current) use of antithrombotics/antiplatelets; Z86.73 Personal history of transient ischemic attack (TIA), and cerebral infarction without residual deficits
CPT/HCPCS: 99283; 71046; 80053; 83880; 84484; 85025; 85610; 85730; 86850; 86900; 86901; 93005

== ENCOUNTER → 2024-08-11 10:52 | Outpatient (REF) | payer MEDICARE, OTHER, SELFPAY ==
[2024-08-11 15:58] LABS: % Basophils 0.6 % (0-2); % Eosinophils 12.7 % (0-6); % Immature Granulocytes 0.6 % (0-0.5); % Lymphocytes 15.4 % (20.5-51.1); % Monocytes 10.1 % (1.7-9.3); % Neutrophils 60.6 % (42.2-75.2); Absolute Eosinophils 0.7 10^3/uL (0-0.7); Absolute Lymphocytes 0.8 10^3/uL (1.2-3.4); Absolute Monocytes 0.5 10^3/uL (0.1-0.6); Absolute Neutrophils 3.2 10^3/uL (1.4-6.5); Hematocrit 32.2 % (39.0-52.0); Hemoglobin 10.3 g/dL (13.0-18.0); Mean Corpuscular Hgb 30.8 pg (27.0-31.0); Mean Corpuscular Volume 96.4 fL (80.0-94.0); Mean Platelet Volume 10.8 fL (7.4-10.4); Nucleated Red Blood Cells % 0 % (-); Platelet Count 398 10^3/uL (130-400); Red Blood Cell Count 3.34 10^6/uL (4.70-6.10); White Blood Cell Count 5.3 10^3/uL (4.8-10.8)
[2024-08-11 16:06] LABS: ALT (SGPT) 13 U/L (0-50); AST (SGOT) 15 U/L (17-59); Albumin 3.2 g/dl (3.5-5.0); Alkaline Phosphatase 89 U/L (38-126); Blood Urea Nitrogen 17 mg/dl (9-20); Calcium 8.7 mg/dl (8.4-10.2); Carbon Dioxide 32 mmol/L (22-30); Chloride 107 mmol/L (98-107); Glucose 96 mg/dl (70-99); Potassium 3.6 mmol/L (3.5-5.1); Sodium 145 mmol/L (135-145); Total Bilirubin 0.5 mg/dl (0.2-1.3); eGFR > 60.00
[2024-08-11 16:35] LABS: TSH Reflex To Free T4 2.66 uIU/ml (0.47-4.68)
== END ==
LOC: HWLAB 10:52
PROVIDERS: ATTENDING PHYSICIAN Student in an Organized Health Care Education/Training Program
DX: R89.9 Unspecified abnormal finding in specimens from other organs, systems and tissues (principal); R60.0 Localized edema; D64.9 Anemia, unspecified; D75.839 Thrombocytosis, unspecified; E87.5 Hyperkalemia; R05.2 Subacute cough
CPT/HCPCS: 36415; 80053; 84443; 85025

== ENCOUNTER → 2024-08-17 10:01 | Outpatient (REF) | payer MEDICARE, OTHER, SELFPAY ==
[2024-08-17 12:21] LABS: % Basophils 0.8 % (0-2); % Eosinophils 13.5 % (0-6); % Immature Granulocytes 0.4 % (0-0.5); % Lymphocytes 18.7 % (20.5-51.1); % Monocytes 10.4 % (1.7-9.3); % Neutrophils 56.2 % (42.2-75.2); Absolute Eosinophils 0.7 10^3/uL (0-0.7); Absolute Monocytes 0.5 10^3/uL (0.1-0.6); Absolute Neutrophils 2.9 10^3/uL (1.4-6.5); Hematocrit 33.7 % (39.0-52.0); Hemoglobin 10.8 g/dL (13.0-18.0); Mean Corpuscular Hgb 30.9 pg (27.0-31.0); Mean Corpuscular Volume 96.6 fL (80.0-94.0); Mean Platelet Volume 10.1 fL (7.4-10.4); Nucleated Red Blood Cells % 0 % (-); Platelet Count 471 10^3/uL (130-400); Red Blood Cell Count 3.49 10^6/uL (4.70-6.10); Red Cell Dist. Width 14.7 % (11.5-14.5); White Blood Cell Count 5.2 10^3/uL (4.8-10.8)
[2024-08-17 12:42] LABS: Magnesium 2.4 mg/dl (1.6-2.3); Uric Acid 5.2 mg/dl (3.5-8.5)
[2024-08-17 12:52] LABS: Total Iron Binding Capacity 201 ug/dl (261-462)
[2024-08-17 12:56] LABS: Erythrocyte Sed Rate 86 mm/hour (0-20)
[2024-08-17 13:21] LABS: Vitamin B12 288 pg/ml (239-931)
[2024-08-17 15:29] LABS: Absolute Neutrophils -Man Diff 3.2 10^3/uL (1.4-6.5); Band Neutrophils 1 % (0-3); Eosinophils 11 % (0-6); Lymphocytes 16 % (20-51); Monocytes 11 % (2-9); Normal RBC Morphology Yes; Platelets Checked Yes; Segmented Neutrophils 61 % (42-75)
[2024-08-17 15:30] LABS: Total Cells Counted 100
[2024-08-19 23:40] LABS: Transferrin 136 mg/dL (200-360)
== END ==
LOC: HWLAB 10:01
PROVIDERS: ATTENDING PHYSICIAN Student in an Organized Health Care Education/Training Program
DX: D64.9 Anemia, unspecified (principal); R53.82 Chronic fatigue, unspecified; D72.10 Eosinophilia, unspecified; G45.9 Transient cerebral ischemic attack, unspecified
CPT/HCPCS: 36415; 82607; 82728; 83550; 83735; 84100; 84466; 84550; 85025; 85652

== ENCOUNTER 2024-08-18 11:53 | Emergency (ER) | payer MEDICARE, OTHER, SELFPAY ==
[2024-08-18 11:56] VITALS: BP 141/64
[2024-08-18 12:04] VITALS: BMI 26.3
[2024-08-18 12:17] VITALS: BP 135/96
[2024-08-18 12:24] LABS: % Basophils 0.5 % (0-2); % Eosinophils 13.4 % (0-6); % Immature Granulocytes 0.5 % (0-0.5); % Lymphocytes 17.2 % (20.5-51.1); % Monocytes 9.6 % (1.7-9.3); % Neutrophils 58.8 % (42.2-75.2); Absolute Eosinophils 0.8 10^3/uL (0-0.7); Absolute Monocytes 0.6 10^3/uL (0.1-0.6); Absolute Neutrophils 3.5 10^3/uL (1.4-6.5); Hematocrit 33.2 % (39.0-52.0); Hemoglobin 10.9 g/dL (13.0-18.0); Mean Corp Hgb Conc. 32.8 g/dL (33.0-37.0); Mean Corpuscular Hgb 31.1 pg (27.0-31.0); Mean Corpuscular Volume 94.9 fL (80.0-94.0); Mean Platelet Volume 9.3 fL (7.4-10.4); Nucleated Red Blood Cells % 0 % (-); Platelet Count 424 10^3/uL (130-400); Red Cell Dist. Width 14.7 % (11.5-14.5)
[2024-08-18 12:35] LABS: INR 1.16; PT 15.1 Sec (11.4-14.6)
[2024-08-18 12:36] LABS: ALT (SGPT) 12 U/L (0-50); APTT 39.5 Sec (23.4-35.0); AST (SGOT) 14 U/L (17-59); Albumin 3.4 g/dl (3.5-5.0); Alkaline Phosphatase 104 U/L (38-126); Blood Urea Nitrogen 18 mg/dl (9-20); Calcium 8.8 mg/dl (8.4-10.2); Carbon Dioxide 28 mmol/L (22-30); Chloride 107 mmol/L (98-107); Estimated Creatinine Clearance 76 ml/min; Glucose 98 mg/dl (70-99); Potassium 4.3 mmol/L (3.5-5.1); Sodium 141 mmol/L (135-145); Total Bilirubin 0.5 mg/dl (0.2-1.3); Total Protein 6.4 g/dl (6.3-8.2); eGFR > 60.00
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
[2024-08-18 13:26] VITALS: BP 125/75
[2024-08-18 14:00] VITALS: BP 126/77
[2024-08-18] MEDS: PLAVIX 75 MG PO (14:30)
== END 2024-08-18 14:40 | disposition home or self-care (01) ==
LOC: EMR 11:53
PROVIDERS: EMERGENCY PHYSICIAN Student in an Organized Health Care Education/Training Program; FAMILY PHYSICIAN Student in an Organized Health Care Education/Training Program
DX: G45.9 Transient cerebral ischemic attack, unspecified (principal); K21.9 Gastro-esophageal reflux disease without esophagitis; D64.9 Anemia, unspecified; Z86.73 Personal history of transient ischemic attack (TIA), and cerebral infarction without residual deficits
CPT/HCPCS: 99284; 70496; 70498; 80053; 85025; 85610; 85730; 93005; Q9967

== ENCOUNTER → 2024-10-06 09:21 | Outpatient (REF) | payer MEDICARE, OTHER, SELFPAY | LOC: RAD 09:21 | DX: R63.4 Abnormal weight loss (principal); K59.09 Other constipation; D53.9 Nutritional anemia, unspecified | CPT/HCPCS: 74177; Q9967 ==

== ENCOUNTER → 2024-10-12 08:02 | Outpatient (REF) | payer MEDICARE, OTHER, SELFPAY | LOC: RCS 08:02 | DX: I63.9 Cerebral infarction, unspecified (principal); G45.9 Transient cerebral ischemic attack, unspecified; R60.0 Localized edema | CPT/HCPCS: 93306 ==

== ENCOUNTER → 2025-01-05 10:54 | Outpatient (REF) | payer MEDICARE, OTHER, SELFPAY ==
[2025-01-05 16:12] LABS: Hematocrit 31.3 % (39.0-52.0); Hemoglobin 9.9 g/dL (13.0-18.0); Mean Corp Hgb Conc. 31.6 g/dL (33.0-37.0); Mean Corpuscular Volume 98.7 fL (80.0-94.0); Nucleated Red Blood Cells % 0 % (-); Platelet Count 361 10^3/uL (130-400); Red Cell Dist. Width 13.5 % (11.5-14.5)
[2025-01-05 16:22] LABS: ALT (SGPT) 18 U/L (0-50); AST (SGOT) 18 U/L (17-59); Albumin 3.0 g/dl (3.5-5.0); Alkaline Phosphatase 108 U/L (38-126); Blood Urea Nitrogen 16 mg/dl (9-20); Calcium 8.3 mg/dl (8.4-10.2); Carbon Dioxide 33 mmol/L (22-30); Chloride 104 mmol/L (98-107); Glucose 94 mg/dl (70-99); Potassium 3.3 mmol/L (3.5-5.1); Sodium 140 mmol/L (135-145); Total Protein 6.1 g/dl (6.3-8.2); eGFR > 60.00
[2025-01-05 16:39] LABS: C-Reactive Protein 150.50 mg/L (0.0-10.00)
[2025-01-05 16:53] LABS: Urine Character Clear (Clear)
[2025-01-05 17:31] LABS: Folate 4.0 ng/ml (2.76-20); Vitamin B12 954 pg/ml (239-931)
== END ==
LOC: HWLAB 10:54
DX: E88.09 Other disorders of plasma-protein metabolism, not elsewhere classified (principal); D72.821 Monocytosis (symptomatic); R60.0 Localized edema; D72.10 Eosinophilia, unspecified; E53.8 Deficiency of other specified B group vitamins; R63.4 Abnormal weight loss
CPT/HCPCS: 36415; 80053; 81003; 82607; 82746; 85025; 85652; 86038; 86140

== ENCOUNTER → 2025-01-11 12:03 | Outpatient (REF) | payer MEDICARE, OTHER, SELFPAY | LOC: HWRAD 12:03 | PROVIDERS: ATTENDING PHYSICIAN Student in an Organized Health Care Education/Training Program; FAMILY PHYSICIAN Family Medicine | DX: R22.1 Localized swelling, mass and lump, neck (principal) | CPT/HCPCS: 70490 ==

== ENCOUNTER → 2025-02-22 14:19 | Outpatient (REF) | payer MEDICARE, OTHER, SELFPAY | LOC: HWRAD 14:19 | PROVIDERS: ATTENDING PHYSICIAN Student in an Organized Health Care Education/Training Program | DX: R60.9 Edema, unspecified (principal) | CPT/HCPCS: 76536 ==